=== PATIENT | male | born 1940 | race African-American/Black ===

== ENCOUNTER 2016-11-20 12:04 | Emergency (ER) | payer BC ==
[~2016-11-20] VITALS: Ht 172.7 cm; Wt 78.0 kg
[2016-11-20] MEDS ORDERED: CLONIDINE 0.2MG TABLET PO ONE (14:15)
[2016-11-20 14:24] LABS: EOSINOPHILS % 3.3 % (0.0-5.0); HEMATOCRIT. 40.9 % (42.0-52.0); LYMPHOCYTES % 33.3 % (20.0-50.0); MEAN CORPUSCULAR HEMOGLOBIN 22.3 pg (28.0-32.0); MEAN CORPUSCULAR VOLUME 70.4 fL (80.0-94.0); MEAN PLATELET VOLUME 9.8 fl (7.4-10.4); MONOCYTES % 11.7 % (2.0-8.0); NEUTROPHILS % 50.7 % (40.0-76.0); PLATELET 174 x1000/uL (130-400); RED CELL DISTRIBUTION WIDTH 16.9 % (11.6-14.6)
[2016-11-20 14:33] LABS: INR 1.1; PARTIAL THROMBOPLASTIN TIME 31.3 sec (24.0-34.0); PROTHROMBIN TIME 11.8 sec
[2016-11-20 14:36] LABS: CARBON DIOXIDE 27 mEq/L (21-32); CHLORIDE 104 mEq/L (98-107)
[2016-11-20 15:13] VITALS: BP 174/91
== END 2016-11-20 15:15 | disposition home or self-care (01) ==
LOC: CANRESERV 13:59 → ENRESERV 13:59 → ER 15:11 → CANBEDREQ 23:35
DX: K40.30 Unilateral inguinal hernia, with obstruction, without gangrene, not specified as recurrent (principal); E78.00 Pure hypercholesterolemia, unspecified; I10 Essential (primary) hypertension; F14.10 Cocaine abuse, uncomplicated; F17.210 Nicotine dependence, cigarettes, uncomplicated; Z98.890 Other specified postprocedural states
CPT/HCPCS: 36415; 71010; 80048; 85025; 85610; 85730; 86850; 86900; 93005; 99285